=== PATIENT | female | born 1955 | race Hispanic/Latino ===

== ENCOUNTER 2017-12-14 13:24 | Emergency (ER) | payer MEDICARE, OTHER ==
[2017-12-14 13:37] VITALS: BP 177/89
[2017-12-14] MEDS ORDERED: NORCO 5/325 PO ONE (15:41)
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
== END 2017-12-14 17:00 | disposition home or self-care (01) ==
LOC: ED 13:24
DX: S13.8XXA Sprain of joints and ligaments of other parts of neck, initial encounter (principal); Z88.6 Allergy status to analgesic agent; Z88.8 Allergy status to other drugs, medicaments and biological substances; V89.2XXA Person injured in unspecified motor-vehicle accident, traffic, initial encounter; Y93.89 Activity, other specified; Y92.89 Other specified places as the place of occurrence of the external cause; Y99.8 Other external cause status
CPT/HCPCS: 72125; 99284

== ENCOUNTER 2018-08-26 09:26 | Inpatient (IN) | payer MEDICARE ==
[2018-08-26 10:07] LABS: Basophils % (Auto) 0.5 % (0.0-1.8); Eosinophils % (Auto) 0.7 % (0.0-4.3); Hematocrit 35.7 % (30.3-42.9); Hemoglobin 11.8 gm/dl (10.1-14.3); Lymphocytes # (Auto) 1.2 K/mm3 (1.2-5.4); Lymphocytes % (Auto) 22.3 % (13.4-35.0); Mean Corpuscular HGB Conc 33 % (30-34); Mean Corpuscular Volume 100 fl (79-97); Monocytes # (Auto) 0.7 K/mm3 (0.0-0.8); Monocytes % (Auto) 13.3 % (0.0-7.3); Platelet Count 158 K/mm3 (140-440); Red Blood Count 3.59 M/mm3 (3.65-5.03)
[2018-08-26] MEDS ORDERED: NACL 0.9% 1000 ML 1,000 ML IV ONE (10:07)
--- NOTE | 2018-08-26 10:11 | Emergency Department Report ---
ED Altered Mental Status HPI - General Chief Complaint: Altered Mental Status Stated Complaint: AMS Time Seen by Provider: 08/26/18 09:58 Source: patient, EMS Mode of arrival: Stretcher Limitations: Altered Mental Status - History of Present Illness Initial Comments: Patient is 63 years old female with history of multiple sclerosis. Patient resides in a personal home care. Brought to the emergency room via EMS for evaluation of confusion since yesterday. Staff stated that patient was last seen normal was at 9:00 last night. They also stated that patient has been incontinence both urine and fecal. Patient is alert oriented to place but not time or person. Patient denied any fever or chills. She denied any chest pain or abdominal pain. MD Complaint: altered mental status, confusion -: Last night Severity: moderate Associated Symptoms: denies other symptoms - Related Data Previous Rx's Medication Instructions Recorded Last Taken Type Acetaminophen/Codeine [Tylenol 1 tab PO Q6H PRN #10 tab 12/14/17 Unknown Rx /Codeine # 3 tab] Ondansetron [Zofran Odt] 4 mg PO Q8HR PRN #12 tab.rapdis 07/22/18 Unknown Rx Allergies Allergy/AdvReac Type Severity Reaction Status Date / Time aspirin Allergy Unknown Verified 12/14/17 13:32 codeine Allergy Unknown Verified 07/22/18 13:23 glatiramer (copolymer 1) Allergy Unknown Verified 12/14/17 13:32 [From Copaxone] ED Review of Systems ROS: Stated complaint: AMS Other details as noted in HPI Comment: All other systems reviewed and negative Respiratory: denies: cough, orthopnea, shortness of breath, SOB with exertion, SOB at rest Cardiovascular: denies: chest pain, palpitations Gastrointestinal: denies: abdominal pain, nausea, vomiting, diarrhea, con stipation, hematemesis, melena, hematochezia Musculoskeletal: denies: back pain Neurological: weakness (chronic). denies: headache ED Past Medical Hx - Past Medical History Previous Medical History?: Yes Hx Psychiatric Treatment: Yes (bipolar) Additional medical history: Multiple Sclerosis, Chronic Pain - Surgical History Past Surgical History?: Yes Additional Surgical History: tonsilectomy - Social History Smoking Status: Never Smoker Substance Use Type: None - Medications Home Medications: Home Medications Medication Instructions Recorded Confirmed Last Taken Type Acetaminophen/Codeine [Tylenol 1 tab PO Q6H PRN #10 tab 12/14/17 Unknown Rx /Codeine # 3 tab] Ondansetron [Zofran Odt] 4 mg PO Q8HR PRN #12 tab.rapdis 07/22/18 Unknown Rx ED Physical Exam - General Limitations: Altered Mental Status General appearance: alert, in no apparent distress - Head Head exam: Present: atraumatic, normocephalic, normal inspection - Eye Eye exam: Present: normal appearance - ENT ENT exam: Present: normal exam, mucous membranes moist - Neck Neck exam: Present: normal inspection, full ROM. Absent: tenderness, meningismus, lymphadenopathy, thyromegaly - Respiratory Respiratory exam: Present: normal lung sounds bilaterally - Cardiovascular Cardiovascular Exam: Present: regular rate, normal rhythm, normal heart sounds - GI/Abdominal GI/Abdominal exam: Present: soft, normal bowel sounds. Absent: distended, tenderness, guarding, rebound, rigid, diminished bowel sounds, organomegaly, mass, bruit, pulsatile mass, hernia - Extremities Exam Extremities exam: Present: normal inspection, full ROM, normal capillary refill. Absent: pedal edema, calf tenderness - Back Exam Back exam: Present: normal inspection, full ROM. Absent: tenderness, CVA tenderness (R), CVA tenderness (L), muscle spasm, paraspinal tenderness, vertebral tenderness - Neurological Exam Neurological exam: Present: alert, altered - Skin Skin exam: Present: warm, intact, normal color - Assessment Assessment Interval: Baseline - Level of Consciousness 1a. Level of Consciousness: alert/keenly responsive - LOC Questions 1b. LOC Questions: answers both correctly - LOC Command 1c. LOC Commands: performs tasks correctly - Best Gaze 2. Best Gaze: normal - Visual 3. Visual: no visual loss - Facial Palsy 4. Facial Palsy: normal symmetrical movement - Motor Arm 5b. Motor Arm Right: no drift 5a. Motor Arm Left: no drift - Motor Leg 6b. Motor Leg Right: no drift 6a. Motor Leg Left: no drift - Limb Ataxia 7. Limb Ataxia: absent - Sensory 8. Sensory: normal - Best Language 9. Best Language: mild/moderate aphasia - Dysarthria 10. Dysarthria: mild/moderate dysarthria - Extinction and Inattention 11. Extinction/Inattention: no abnormality - Scoring Total Score: 2 Stroke Severity: Minor Stroke ED Course Vital Signs 08/26/18 08/26/18 09:39 09:45 Temperature 98.4 F Pulse Rate 74 Respiratory 18 Rate Blood Pressure 118/67 O2 Sat by Pulse 100 Oximetry - Lab Data Result diagrams: 08/26/18 09:54 08/26/18 09:54 Lab Results 08/26/18 08/26/18 08/26/18 Range/Units 09:39 09:54 09:54 WBC 5.2 (4.5-11.0) K/mm3 RBC 3.59 L (3.65-5.03) M/mm3 Hgb 11.8 (10.1-14.3) gm/dl Hct 35.7 (30.3-42.9) % MCV 100 H (79-97) fl MCH 33 H (28-32) pg MCHC 33 (30-34) % RDW 14.0 (13.2-15.2) % Plt Count 158 (140-440) K/mm3 Lymph % (Auto) 22.3 (13.4-35.0) % [place] % (Auto) 13.3 H (0.0-7.3) % Eos % (Auto) 0.7 (0.0-4.3) % Baso % (Auto) 0.5 (0.0-1.8) % Lymph # 1.2 (1.2-5.4) K/mm3 [place] # 0.7 (0.0-0.8) K/mm3 Eos # 0.0 (0.0-0.4) K/mm3 Baso # 0.0 (0.0-0.1) K/mm3 Seg Neutrophils % 63.2 (40.0-70.0) % Seg Neutrophils # 3.3 (1.8-7.7) K/mm3 Sodium 139 (137-145) mmol/L Potassium 4.0 (3.6-5.0) mmol/L Chloride 101.2 (98-107) mmol/L Carbon Dioxide 28 (22-30) mmol/L Anion Gap 14 mmol/L BUN 6 L (7-17) mg/dL Creatinine 0.6 L (0.7-1.2) mg/dL Estimated GFR > 60 ml/min BUN/Creatinine Ratio 10 % Glucose 81 (65-100) mg/dL POC Glucose 119 H (70-105) Calcium 8.8 (8.4-10.2) mg/dL Total Bilirubin 0.30 (0.1-1.2) mg/dL AST 14 (5-40) units/L ALT 10 (7-56) units/L Alkaline Phosphatase 66 (35-129) units/L Troponin T (0.00-0.029) ng/mL Total Protein 6.1 L (6.3-8.2) g/dL Albumin 3.5 L (3.9-5) g/dL Albumin/Globulin Ratio 1.3 % TSH (0.270-4.200) mlU/mL Urine Color (Yellow) Urine Turbidity (Clear) Urine pH (5.0-7.0) Ur Specific [place] (1.003-1.030) Urine Protein (Negative) mg/dL Urine Glucose (UA) (Negative) mg/dL Urine Ketones (Negative) mg/dL Urine Blood (Negative) Urine Nitrite (Negative) Urine Bilirubin (Negative) Urine Urobilinogen (<2.0) mg/dL Ur Leukocyte Esterase (Negative) Urine WBC (Auto) (0.0-6.0) /HPF Urine RBC (Auto) (0.0-6.0) /HPF Urine Opiates Screen Urine Methadone Screen Ur Barbiturates Screen Ur Phencyclidine Scrn Ur Amphetamines Screen U Benzodiazepines Scrn Urine Cocaine Screen U Marijuana (THC) Screen Drugs of Abuse Note Plasma/Serum Alcohol (0-0.07) % 08/26/18 08/26/18 08/26/18 Range/Units 09:54 09:54 09:56 WBC (4.5-11.0) K/mm3 RBC (3.65-5.03) M/mm3 Hgb (10.1-14.3) gm/dl Hct (30.3-42.9) % MCV (79-97) fl MCH (28-32) pg MCHC (30-34) % RDW (13.2-15.2) % Plt Count (140-440) K/mm3 Lymph % (Auto) (13.4-35.0) % [place] % (Auto) (0.0-7.3) % Eos % (Auto) (0.0-4.3) % Baso % (Auto) (0.0-1.8) % Lymph # (1.2-5.4) K/mm3 [place] # (0.0-0.8) K/mm3 Eos # (0.0-0.4) K/mm3 Baso # (0.0-0.1) K/mm3 Seg Neutrophils % (40.0-70.0) % Seg Neutrophils # (1.8-7.7) K/mm3 Sodium (137-145) mmol/L Potassium (3.6-5.0) mmol/L Chloride (98-107) mmol/L Carbon Dioxide (22-30) mmol/L Anion Gap mmol/L BUN (7-17) mg/dL Creatinine (0.7-1.2) mg/dL Estimated GFR ml/min BUN/Creatinine Ratio % Glucose (65-100) mg/dL POC Glucose (70-105) Calcium (8.4-10.2) mg/dL Total Bilirubin (0.1-1.2) mg/dL AST (5-40) units/L ALT (7-56) units/L Alkaline Phosphatase (35-129) units/L Troponin T < 0.010 (0.00-0.029) ng/mL Total Protein (6.3-8.2) g/dL Albumin (3.9-5) g/dL Albumin/Globulin Ratio % TSH 1.990 (0.270-4.200) mlU/mL Urine Color (Yellow) Urine Turbidity (Clear) Urine pH (5.0-7.0) Ur Specific [place] (1.003-1.030) Urine Protein (Negative) mg/dL Urine Glucose (UA) (Negative) mg/dL Urine Ketones (Negative) mg/dL Urine Blood (Negative) Urine Nitrite (Negative) Urine Bilirubin (Negative) Urine Urobilinogen (<2.0) mg/dL Ur Leukocyte Esterase (Negative) Urine WBC (Auto) (0.0-6.0) /HPF Urine RBC (Auto) (0.0-6.0) /HPF Urine Opiates Screen Urine Methadone Screen Ur Barbiturates Screen Ur Phencyclidine Scrn Ur Amphetamines Screen U Benzodiazepines Scrn Urine Cocaine Screen U Marijuana (THC) Screen Drugs of Abuse Note Plasma/Serum Alcohol < 0.01 (0-0.07) % 08/26/18 08/26/18 Range/Units 10:25 10:25 WBC (4.5-11.0) K/mm3 RBC (3.65-5.03) M/mm3 Hgb (10.1-14.3) gm/dl Hct (30.3-42.9) % MCV (79-97) fl MCH (28-32) pg MCHC (30-34) % RDW (13.2-15.2) % Plt Count (140-440) K/mm3 Lymph % (Auto) (13.4-35.0) % [place] % (Auto) (0.0-7.3) % Eos % (Auto) (0.0-4.3) % Baso % (Auto) (0.0-1.8) % Lymph # (1.2-5.4) K/mm3 [place] # (0.0-0.8) K/mm3 Eos # (0.0-0.4) K/mm3 Baso # (0.0-0.1) K/mm3 Seg Neutrophils % (40.0-70.0) % Seg Neutrophils # (1.8-7.7) K/mm3 Sodium (137-145) mmol/L Potassium (3.6-5.0) mmol/L Chloride (98-107) mmol/L Carbon Dioxide (22-30) mmol/L Anion Gap mmol/L BUN (7-17) mg/dL Creatinine (0.7-1.2) mg/dL Estimated GFR ml/min BUN/Creatinine Ratio % Glucose (65-100) mg/dL POC Glucose (70-105) Calcium (8.4-10.2) mg/dL Total Bilirubin (0.1-1.2) mg/dL AST (5-40) units/L ALT (7-56) units/L Alkaline Phosphatase (35-129) units/L Troponin T (0.00-0.029) ng/mL Total Protein (6.3-8.2) g/dL Albumin (3.9-5) g/dL Albumin/Globulin Ratio % TSH (0.270-4.200) mlU/mL Urine Color Straw (Yellow) Urine Turbidity Clear (Clear) Urine pH 8.0 H (5.0-7.0) Ur Specific [place] 1.002 L (1.003-1.030) Urine Protein <15 mg/dl (Negative) mg/dL Urine Glucose (UA) Neg (Negative) mg/dL Urine Ketones Neg (Negative) mg/dL Urine Blood Neg (Negative) Urine Nitrite Neg (Negative) Urine Bilirubin Neg (Negative) Urine Urobilinogen < 2.0 (<2.0) mg/dL Ur Leukocyte Esterase Neg (Negative) Urine WBC (Auto) < 1.0 (0.0-6.0) /HPF Urine RBC (Auto) 1.0 (0.0-6.0) /HPF Urine Opiates Screen Presumptive negative Urine Methadone Screen Presumptive negative Ur Barbiturates Screen Presumptive negative Ur Phencyclidine Scrn Presumptive negative Ur Amphetamines Screen Presumptive negative U Benzodiazepines Scrn Presumptive negative Urine Cocaine Screen Presumptive negative U Marijuana (THC) Screen Presumptive negative Drugs of Abuse Note Disclamer Plasma/Serum Alcohol (0-0.07) % - EKG Data -: EKG Interpreted by Al EKG shows normal: sinus rhythm Rate: normal Interpretation: no acute changes - Radiology Data Radiology results: report reviewed Referring Physician: BERENICE EWLCH Patient Name: FABIOLA MENDOZA Date of : 1955 Sex: Female Report Date: 2018-08-26 Report Status: Finalized Findings [facility] [address] [place] [address] Cat Scan Report Signed Patient: FABIOLA MENDOZA MR#: [id number] : 1955 Acct:[id number] Age/Sex: 63 / F ADM Date: 08/26/18 Loc: ED Attending Dr: Ordering Physician: BERENICE WELCH Date of Service: 08/26/18 Procedure(s): CT head/brain wo con Accession Number(s): [id number] cc: BERENICE WELCH CT HEAD WITHOUT CONTRAST INDICATION: Altered mental status. COMPARISON: 07/22/2018. FINDINGS: Noncontrast head CT again demonstrates symmetric, mild to moderately enlarged ventricles and sulci, though may be age-appropriate. Moderate periventricular and white matter hypodense small vessel ischemic disease also again seen. No definite acute infarct, hemorrhage, mass effect or midline shift. No abnormal extra axial fluid collections. Preserved basilar cisterns. Stable posterior fossa with approximately 8mm left cerebellar lacunar infarct, axial image 16, series 2. Normal eye globes. Right maxillary sinus mucosal thickening inferiorly partially imaged. Clear remainder imaged paranasal sinuses and mastoid air cells. Atherosclerotic ICA calcifications. Normal calvarium and skull. Numerous radiopaque dental material. CONCLUSION: Right maxillary sinusitis noted with otherwise stable intracranial CT appearance, including atrophy and microvascular changes, as described. Please correlate. Thank you for the opportunity to participate in this patient's care. Transcribed By: RS Dictated By: NAVIN PENN MD Electronically Authenticated By: NAVIN PENN MD Signed Date/Time: 08/26/18 112 DD/ 1116 TD/TT: 08/26/18 1120 - Medical Decision Making Patient is 63 years old female with history of multiple sclerosis. Patient resi rosibel in a personal home care. Brought to the emergency room via EMS for evaluation of confusion since yesterday. Staff stated that patient was last seen normal was at 9:00 last night. They also stated that patient has been incontinence both urine and fecal. Patient is alert oriented to place but not time or person. Patient denied any fever or chills. She denied any chest pain or abdominal pain. Patient evaluated by me multiple times. Patient is alert oriented to place only. CT brain reviewed and is negative for acute finding. Labs review it also and is unremarkable. I believe the patient most likely had MS exacerbation. I discussed the patient with Dr White agreed to admit the patient to medical service. Critical Care Time: Yes Critical care time in (mins) excluding proc time.: 30 Critical care attestation.: If time is entered above; I have spent that time in minutes in the direct care of this critically ill patient, excluding procedure time. ED Disposition Clinical Impression: Confusion, Exacerbation of multiple sclerosis Disposition: OP ADMIT IP TO THIS HOSP Is pt being admited?: Yes Condition: Stable
[2018-08-26 10:53] LABS: Alanine Aminotransferase 10 units/L (7-56); Albumin 3.5 g/dL (3.9-5); BUN/Creatinine Ratio 10; Blood Urea Nitrogen 6 mg/dL (7-17); Calcium 8.8 mg/dL (8.4-10.2); Hemolysis Index 6
--- NOTE | 2018-08-26 11:24 | Cat Scan Report ---
CT HEAD WITHOUT CONTRAST INDICATION: Altered mental status. COMPARISON: 07/22/2018. FINDINGS: Noncontrast head CT again demonstrates symmetric, mild to moderately enlarged ventricles and sulci, though may be age-appropriate. Moderate periventricular and white matter hypodense small vessel ischemic disease also again seen. No definite acute infarct, hemorrhage, mass effect or midline shift. No abnormal extra axial fluid collections. Preserved basilar cisterns. Stable posterior fossa with approximately 8mm left cerebellar lacunar infarct, axial image 16, series 2. Normal eye globes. Right maxillary sinus mucosal thickening inferiorly partially imaged. Clear remainder imaged paranasal sinuses and mastoid air cells. Atherosclerotic ICA calcifications. Normal calvarium and skull. Numerous radiopaque dental material. CONCLUSION: Right maxillary sinusitis noted with otherwise stable intracranial CT appearance, including atrophy and microvascular changes, as described. Please correlate. Thank you for the opportunity to participate in this patient's care.
[2018-08-26 11:50] LABS: Bilirubin,Urine NEG (Negative); Blood,Urine NEG (Negative); Color,Urine Straw (Yellow); Protein,Urine <15 mg/dL mg/dL (Negative); Urobilinogen,Urine < 2.0 mg/dL (<2.0)
[2018-08-26 11:53] LABS: Amphetamine Screen,Urine PRESUMPTIVE NEGATIVE; Benzodiazepines Screen,Urine PRESUMPTIVE NEGATIVE; Cannabinoid Screen,Urine PRESUMPTIVE NEGATIVE; Cocaine Screen,Urine PRESUMPTIVE NEGATIVE; Methadone Screen,Urine PRESUMPTIVE NEGATIVE; Opiate Screen,Urine PRESUMPTIVE NEGATIVE
[2018-08-26 12:05] LABS: WBC,Urine < 1.0 /HPF (0.0-6.0)
--- NOTE | 2018-08-26 12:20 | History and Physical Report ---
History of Present Illness Chief complaint: Im weak, I keep falling History of present illness: 63 YO Female Assisted living Facility Resident with MS, Bipolar DO, Chronic Pain presents to ED for evaluation. Pt states that she has experienced increased confusion over the past 2 days, as well as multiple recurrent falls over the past 2 weeks. Pt acknowledges difficulty speaking, blurred vision, coughing, loss of bowel and bladder continence. EMS notified, and upon arrival the patient was found to be in distress and was subsequently transported to [facility] for further care and evaluation. Pt seen and evaluated in ED and found to have MS Flare. Pt is currently unable to independently conduct activities of daily living. Pt admitted to [facility] and treated with IV steroid therapy. Neurology consulted in ED. Pt denies fever, chills, CP, Palpitations, NVD, skin rash, or recent ill contacts. Pt states that she has recurrent falls, and has to remain on the floor until caregiver comes to pick her up, and that she is pulled up by her belt by the caregiver which causes pain. Pt sates that she does not want to return to her current LONG-TERM. Past History Past Medical History: other (Bipolar, MS, chronic pain) Past Surgical History: tonsillectomy Social history: single. denies: smoking, alcohol abuse, prescription drug abuse Family history: no significant family history (reviewed) Medications and Allergies Allergies Allergy/AdvReac Type Severity Reaction Status Date / Time aspirin Allergy Unknown Verified 12/14/17 13:32 codeine Allergy Unknown Verified 07/22/18 13:23 glatiramer (copolymer 1) Allergy Unknown Verified 12/14/17 13:32 [From Copaxone] Home Medications Medication Instructions Recorded Confirmed Last Taken Type Acetaminophen/Codeine [Tylenol 1 tab PO Q6H PRN #10 tab 12/14/17 Unknown Rx /Codeine # 3 tab] Ondansetron [Zofran Odt] 4 mg PO Q8HR PRN #12 tab.rapdis 07/22/18 Unknown Rx Active Meds: Active Medications Sodium Chloride (Nacl 0.9% 1000 Ml) 1,000 mls @ 250 mls/hr IV ONCE ONE Stop: 08/26/18 14:06 Last Admin: 08/26/18 11:43 Dose: 250 mls/hr Documented by: Review of Systems Constitutional: weakness, no weight loss, no weight gain, no fever, no chills Eyes: bilateral: blurred vision Ears, nose, mouth and throat: no ear pain, no ear discharge, no tinnitis, no decreased hearing, no nose pain Breasts: no change in shape, no swelling, no mass Cardiovascular: no chest pain, no orthopnea, no palpitations, no rapid/irregular heart beat Respiratory: cough, no hemoptysis, no shortness of breath, no dyspnea on exertion Gastrointestinal: no abdominal pain, no nausea, no vomiting, no diarrhea Genitourinary Female: no pelvic pain, no flank pain, no menorrhagia, no dysuria, no urinary frequency, no urgency Rectal: no pain, no incontinence, no bleeding Musculoskeletal: no neck stiffness, no neck pain, no shooting arm pain, no arm numbness/tingling, no low back pain Neurological: weakness, ataxia, confusion, gait dysfunction, motor disturbance Psychiatric: no anxiety, no memory loss, no change in sleep habits, no sleep disturbances, no insomnia, no hypersomnia, no change in appetite, no change in libido Endocrine: no cold intolerance, no heat intolerance, no polyphagia, no polyuria Hematologic/Lymphatic: no easy bruising, no easy bleeding Allergic/Immunologic: no urticaria, no allergic rhinitis, no wheezing Exam - Constitutional Vitals: Temp Pulse Resp BP Pulse Ox 98.4 F 74 18 118/67 100 08/26/18 09:45 08/26/18 09:39 08/26/18 09:39 08/26/18 09:39 08/26/18 09:39 General appearance: Present: mild distress, disheveled - EENT Eyes: Present: PERRL ENT: hearing intact, clear oral mucosa - Neck Neck: Present: supple, normal ROM - Respiratory Respiratory: bilateral: CTA - Cardiovascular Heart Sounds: Present: S1 & S2. Absent: rub, click - Extremities Extremities: pulses symmetrical, No edema Peripheral Pulses: within normal limits - Abdominal General gastrointestinal: Present: soft, non-tender, non-distended, normal bowel sounds Female genitourinary: Present: normal - Integumentary Integumentary: Present: clear, dry, decreased turgor - Musculoskeletal Musculoskeletal: generalized weakness - Psychiatric Psychiatric: appropriate mood/affect, intact judgment & insight, memory intact - Neurologic Neurologic: CNII-XII intact, no gait normal, other (Dysarthria, word finding difficulty, ) Results - Labs CBC & Chem 7: 08/26/18 09:54 08/26/18 09:54 Labs: Abnormal lab results 08/26/18 08/26/18 08/26/18 Range/Units 09:39 09:54 09:54 RBC 3.59 L (3.65-5.03) M/mm3 MCV 100 H (79-97) fl MCH 33 H (28-32) pg [place] % (Auto) 13.3 H (0.0-7.3) % BUN 6 L (7-17) mg/dL Creatinine 0.6 L (0.7-1.2) mg/dL POC Glucose 119 H (70-105) Total Protein 6.1 L (6.3-8.2) g/dL Albumin 3.5 L (3.9-5) g/dL Urine pH (5.0-7.0) Ur Specific [place] (1.003-1.030) 08/26/18 Range/Units 10:25 RBC (3.65-5.03) M/mm3 MCV (79-97) fl MCH (28-32) pg [place] % (Auto) (0.0-7.3) % BUN (7-17) mg/dL Creatinine (0.7-1.2) mg/dL POC Glucose (70-105) Total Protein (6.3-8.2) g/dL Albumin (3.9-5) g/dL Urine pH 8.0 H (5.0-7.0) Ur Specific [place] 1.002 L (1.003-1.030) Assessment and Plan - Patient Problems (1) Exacerbation of multiple sclerosis Current Visit: Yes Status: Acute Plan to address problem: IV steroid therapy, CT hear, MRI Brain, Lumbar spine, supportive care. Neurology consulted. (2) Bipolar 1 disorder Current Visit: Yes Status: Acute Plan to address problem: continue current therapy, supportive care. (3) Debility Current Visit: Yes Status: Acute Plan to address problem: PT consulted (4) DVT prophylaxis Current Visit: Yes Status: Acute Plan to address problem: SCD to BLE while in bed
[2018-08-26] MEDS ORDERED: TYLENOL PO PRN (12:21)
[2018-08-26] MEDS ORDERED: SODIUM CHLORIDE FLUSH SYRINGE 10 ML IV PRN (12:21)
[2018-08-26] MEDS ORDERED: PROVENTIL IH PRN (12:21)
[2018-08-26] MEDS ORDERED: ZOFRAN IV PRN (12:21)
[2018-08-26] MEDS ORDERED: SOLU-Medrol ONE (12:52)
[2018-08-26] MEDS ORDERED: SOLU-Medrol IV ONE (13:24)
--- NOTE | 2018-08-26 19:15 | Consultation ---
History of Present Illness Consult date: 08/26/18 Chief complaint: FAlls History of present illness: This is a 63 YO F with history of MS x 9 years who presented to the ED with an increase in falls. PT denied any recent illness. Not a great historian but says she has been off MS meds for "months". Thinks she was last on Copaxone. Has seen many neurologists but says Dr. Ramakrishna price is her neurologist but has not seen him recently. Denied recent dysuria but says she has trouble control ling her bladder. Past History Past Medical History: other (Bipolar, MS, chronic pain) Past Surgical History: tonsillectomy Social history: single. denies: smoking, alcohol abuse, prescription drug abuse Family history: no significant family history (reviewed) Medications and Allergies Allergies Allergy/AdvReac Type Severity Reaction Status Date / Time aspirin Allergy Unknown Verified 12/14/17 13:32 codeine Allergy Unknown Verified 07/22/18 13:23 glatiramer (copolymer 1) Allergy Unknown Verified 12/14/17 13:32 [From Copaxone] Home Medications Medication Instructions Recorded Confirmed Last Taken Type Acetaminophen/Codeine [Tylenol 1 tab PO Q6H PRN #10 tab 12/14/17 Unknown Rx /Codeine # 3 tab] Ondansetron [Zofran Odt] 4 mg PO Q8HR PRN #12 tab.rapdis 07/22/18 Unknown Rx Active Meds: Active Medications Acetaminophen (Tylenol) 650 mg PO Q4H PRN PRN Reason: Pain MILD(1-3)/Fever >100.5/EARLY Albuterol (Proventil) 2.5 mg IH Q4HRT PRN PRN Reason: Shortness Of Breath Methylprednisolone Sodium Succinate (Solu-Medrol) 40 mg IV Q12HR PEARL Ondansetron HCl (Zofran) 4 mg IV Q8H PRN PRN Reason: Nausea And Vomiting Sodium Chloride (Sodium Chloride Flush Syringe 10 Ml) 10 ml IV BID [place]ARL Sodium Chloride (Sodium Chloride Flush Syringe 10 Ml) 10 ml IV PRN PRN PRN Reason: LINE FLUSH Review of Systems Neurological: weakness, tremors, spasticity Physical Examination - Vital Signs Vital Signs: Vital Signs Pulse Resp BP Pulse Ox 74 18 118/67 100 08/26/18 09:39 08/26/18 09:39 08/26/18 09:39 08/26/18 09:39 - EENT EENT: Present: hearing intact, vision intact - Respiratory Respiratory: Present: normal breath sounds - Cardiovascular Cardiovascular: Present: regular rate - Neurologic Cranial nerve examination: EOMI, anisocoria, V1/V2/V3 grossly intact, face symmetric, tongue midline Speech examination: intact Motor examination - right side: 3/5: biceps, triceps, wrist flexion, wrist extension, supervising editor news reel, hip flexors, knee extensors, dorsiflexion, toe extension (EHL), plantarflexion Motor examination - left side: 3/5: biceps, triceps, wrist flexion, wrist extension, supervising editor news reel, hip flexors, knee extensors, dorsiflexion, toe extension (EHL), plantarflexion Detailed sensory examination: light touch Reflexes: 1+: ankle, 2+: bicep, knee, tricep - Additional Exam Additional Exam: increased tone throughout - Assessment Assessment Interval: Baseline - Level of Consciousness 1a. Level of Consciousness: alert/keenly responsive - LOC Questions 1b. LOC Questions: answers both correctly - LOC Command 1c. LOC Commands: performs tasks correctly - Best Gaze 2. Best Gaze: normal - Visual 3. Visual: no visual loss - Facial Palsy 4. Facial Palsy: normal symmetrical movement - Motor Arm 5b. Motor Arm Right: no drift - Motor Leg 6a. Motor Leg Left: no drift - Limb Ataxia 7. Limb Ataxia: absent - Sensory 8. Sensory: normal - Best Language 9. Best Language: mild/moderate aphasia - Dysarthria 10. Dysarthria: mild/moderate dysarthria - Extinction and Inattention 11. Extinction/Inattention: no abnormality Results - Laboratory Findings CBC and BMP: 08/26/18 09:54 08/26/18 09:54 Abnormal Lab Findings: Abnormal Labs 08/26/18 08/26/18 08/26/18 09:39 09:54 09:54 RBC 3.59 L MCV 100 H MCH 33 H [place] % (Auto) 13.3 H BUN 6 L Creatinine 0.6 L POC Glucose 119 H Total Protein 6.1 L Albumin 3.5 L Urine pH Ur Specific [place] 08/26/18 10:25 RBC MCV MCH [place] % (Auto) BUN Creatinine POC Glucose Total Protein Albumin Urine pH 8.0 H Ur Specific [place] 1.002 L Assessment and Plan This is a 63 YO F with presumed MS flare. Recommend: Fine to do 3 days 1 gm solumedrol PT/OT No obvious signs of infection or reason for MS flare noted. Pt should, however, closely follow up with her neurologist as an outpatient to resume MS meds. Continue care for all medical issues as you are doing Call with questions.
--- NOTE | 2018-08-26 20:43 | Magnetic Resonance Report ---
FINAL REPORT PROCEDURE: MR BRAIN WO/W CON TECHNIQUE: Magnetic resonance imaging of the brain was performed before and after the IV injection o f paramagnetic contrast. HISTORY: weaknessinpatient COMPARISON: No prior studies are available for comparison. FINDINGS: Skull base and calvarium: Normal. Paranasal sinuses: The visualized paranasal sinuses are clear. Cerebellum: An irregular focal signal abnormality involving left cerebellar hemisphere is noted which is hypo intense on T1 and hyperintense on T2 weighted images most likely representing an old infarct .. Brainstem: No evidence of hemorrhage, ischemia or mass . Cerebrum: There are multiple irregular signal abnormalities involving bilateral cerebral white matter some of which are oriented perpendicular to the corpus callosum which are predominantly hypo intense on T1 and hyperintense on T2 weighted images without any mass effect. Largest lesion measures 1.1 ce ntimeters located in the right anterior parietal white matter. None of these lesions demonstrate any enhancement on the postcontrast images. Diffusion-weighted images failed to demonstrate any hyperinte nse signal abnormalities.. Sulci and ventricles: Sulci and ventricles are prominent consistent with cerebral atrophy. Pituitary gland and sella: Normal. Globes and orbits: Normal. Vasculature: Normal arterial and venous flow voids. Abnormal enhancement: None. Other: None. IMPRESSION: Irregular focal signal abnormalities of bilateral cerebral hemispheres as described above are of non specific nature. A demyelinating process such as multiple myeloma cannot be excluded. Differential di agnosis includes etiologies such as chronic cerebral microangiopathy and multiple infarcts.
[2018-08-26] MEDS: SOLU-Medrol 1,000 MG in NACL 0.9% 250ML 250 ML IV SCH (21:19)
--- NOTE | 2018-08-26 21:36 | Magnetic Resonance Report ---
FINAL REPORT PROCEDURE: MR LUMBAR SPINE WO/W CON TECHNIQUE: Magnetic resonance imaging of the lumbar spine was performed using standard pulse sequenc es before and after the IV injection of paramagnetic contrast. CPT 14901 HISTORY: weaknessinpatient COMPARISON: No prior studies are available for comparison. FINDINGS: The vertebral body heights and alignment are maintained. The conus terminates at the level of L1 L1-2: No significant abnormality . L2-3: There is disc desiccation, disc space narrowing and endplate fatty changes. Minimal broad-based posterior disc bulge, with no spinal stenosis. No significant neural foraminal narrowing is seen jay aterally. L3-4: Bilateral facet hypertrophic degenerative change. Mild broad-based posterior disc herniation, w ithout significant spinal stenosis. There is mild bilateral neural foraminal narrowing. L4-5: Bilateral facet hypertrophic arthritis and osteophyte formation. Broad-based posterior disc her niation. Thecal sac measures 9 millimeters AP x 9 millimeters transverse. There is moderate bilateral neural foraminal narrowing L5-S1: Bilateral facet hypertrophic arthritis. No disc herniation. Mild bilateral neural foraminal na rrowing. Other: No abnormal enhancement is seen. IMPRESSION: Multilevel degenerative changes, particularly from L2-3 through L5-S1. No significant spinal stenosis is seen, however there is mild to moderate neural foraminal narrowing from L3-4 through L5-S1 as rosibel cribed above
[2018-08-26] MEDS: SOLU-Medrol IV SCH (22:17)
[2018-08-26] MEDS: SODIUM CHLORIDE FLUSH SYRINGE 10 ML IV SCH (22:17)
[2018-08-27 06:34] LABS: Basophils % (Auto) 0.1 % (0.0-1.8); Hematocrit 40.3 % (30.3-42.9); Hemoglobin 13.3 gm/dl (10.1-14.3); Lymphocytes # (Auto) 0.5 K/mm3 (1.2-5.4); Lymphocytes % (Auto) 13.9 % (13.4-35.0); Mean Corpuscular HGB Conc 33 % (30-34); Mean Corpuscular Volume 99 fl (79-97); Platelet Count 187 K/mm3 (140-440); Red Blood Count 4.06 M/mm3 (3.65-5.03); Red Cell Distribution Width 13.5 % (13.2-15.2)
[2018-08-27 06:44] LABS: BUN/Creatinine Ratio 20; Blood Urea Nitrogen 10 mg/dL (7-17); Hemolysis Index 7
[2018-08-27] MEDS ORDERED: PERCOCET 5/325 PO PRN (12:39)
--- NOTE | 2018-08-27 12:42 | Progress Note ---
Assessment and Plan Assessment and plan: 63-year-old woman with history of multiple sclerosis. Presented with episode of confusion, incontinence of urine and feces. The time of arrival shows only oriented to place but not time or person Past medical history multiple sclerosis, bipolar disorder chronic pain syndrome Vital signs reviewed patient has been hypertensive blood pressures as high as 151/75 Labs reviewed, no positive or pertinent labs noted, grossly normal, UDS negat yassine, UA neg Imaging reviewed Brain MRI shows irregular focal signal abnormalities of bilateral cerebral hemispheres consistent with multiple sclerosis CT head shows right maxillary sinusitis otherwise stable Lumbar spine MRI shows multilevel degenerative changes particularly L2 to L3 and L5 to [id number] spinal stenosis is seen, and there is mild to moderate neural foraminal narrowing from L3 to L4 through L5 to S1 Diagnoses Acute exacerbation of multiple sclerosis Acute metabolic encephalopathy Bipolar disorder 1, with paranoia Disability Chronic pain syndrome htn Plan Neurology input appreciated, on 3 days of 1 g Solu-Medrol Optimize medications for chronic conditions Pain control She is paranoid, states that the staffing manager of a personal residential has been rude and mean to her, and that the staffing manager has been telling lies about her. -Discussed with case management about obtaining a different personal residential for her, and the meantime will obtain [facility] History Interval history: Review of systems Constitutional: No fevers, no malaise, no joint pains CVS: No chest pain, no orthopnea, no dyspnea on exertion, no pedal edema GI: No abdominal pain, no diarrhea, no vomiting, no constipation Respiratory: No shortness of breath, no wheezing, no coughing Hospitalist Physical - Physical exam Narrative exam: General.: Appears well, no distress, nontoxic HEENT: Moist mucous membranes, extraocular muscles intact, no lymphadenopathy Neck: supple Cardiac: S1-S2 heard Lungs: clear to auscultation bilaterally Abdomen: soft , nontender, nondistended, bowel sounds positive Extremities: no edema clubbing or cyanosis Skin: no rash or lesions Neurologic: generalized weakness, tremors in UE Psych: calm, and cooperative, but paranoid - Constitutional Vitals: Temp Pulse Resp BP Pulse Ox 98.5 F 71 13 151/75 93 08/27/18 04:00 08/27/18 11:30 08/27/18 11:30 08/27/18 11:30 08/27/18 11:30 General appearance: Present: mild distress, disheveled Results - Labs CBC & Chem 7: 08/27/18 05:38 08/27/18 05:38 Labs: Laboratory Last Values WBC 3.7 K/mm3 (4.5-11.0) L 08/27/18 05:38 RBC 4.06 M/mm3 (3.65-5.03) 08/27/18 05:38 Hgb 13.3 gm/dl (10.1-14.3) 08/27/18 05:38 Hct 40.3 % (30.3-42.9) 08/27/18 05:38 MCV 99 fl (79-97) H 08/27/18 05:38 MCH 33 pg (28-32) H 08/27/18 05:38 MCHC 33 % (30-34) 08/27/18 05:38 RDW 13.5 % (13.2-15.2) 08/27/18 05:38 Plt Count 187 K/mm3 (140-440) 08/27/18 05:38 Lymph % (Auto) 13.9 % (13.4-35.0) 08/27/18 05:38 [place] % (Auto) 1.0 % (0.0-7.3) 08/27/18 05:38 Eos % (Auto) 0.0 % (0.0-4.3) 08/27/18 05:38 Baso % (Auto) 0.1 % (0.0-1.8) 08/27/18 05:38 Lymph # 0.5 K/mm3 (1.2-5.4) L 08/27/18 05:38 [place] # 0.0 K/mm3 (0.0-0.8) 08/27/18 05:38 Eos # 0.0 K/mm3 (0.0-0.4) 08/27/18 05:38 Baso # 0.0 K/mm3 (0.0-0.1) 08/27/18 05:38 Seg Neutrophils % 85.0 % (40.0-70.0) H 08/27/18 05:38 Seg Neutrophils # 3.2 K/mm3 (1.8-7.7) 08/27/18 05:38 Sodium 141 mmol/L (137-145) 08/27/18 05:38 Potassium 4.4 mmol/L (3.6-5.0) 08/27/18 05:38 Chloride 103.0 mmol/L (98-107) 08/27/18 05:38 Carbon Dioxide 25 mmol/L (22-30) 08/27/18 05:38 Anion Gap 17 mmol/L 08/27/18 05:38 BUN 10 mg/dL (7-17) 08/27/18 05:38 Creatinine 0.5 mg/dL (0.7-1.2) L 08/27/18 05:38 Estimated GFR > 60 ml/min 08/27/18 05:38 BUN/Creatinine Ratio 20 % 08/27/18 05:38 Glucose 141 mg/dL (65-100) H 08/27/18 05:38 POC Glucose 134 (70-105) H 08/27/18 09:05 Calcium 9.0 mg/dL (8.4-10.2) 08/27/18 05:38 Total Bilirubin 0.30 mg/dL (0.1-1.2) 08/26/18 09:54 AST 14 units/L (5-40) 08/26/18 09:54 ALT 10 units/L (7-56) 08/26/18 09:54 Alkaline Phosphatase 66 units/L (35-129) 08/26/18 09:54 Troponin T < 0.010 ng/mL (0.00-0.029) 08/26/18 09:56 Total Protein 6.1 g/dL (6.3-8.2) L 08/26/18 09:54 Albumin 3.5 g/dL (3.9-5) L 08/26/18 09:54 Albumin/Globulin Ratio 1.3 % 08/26/18 09:54 TSH 1.990 mlU/mL (0.270-4.200) 08/26/18 09:54 Urine Color Straw (Yellow) 08/26/18 10:25 Urine Turbidity Clear (Clear) 08/26/18 10:25 Urine pH 8.0 (5.0-7.0) H 08/26/18 10:25 Ur Specific [place] 1.002 (1.003-1.030) L 08/26/18 10:25 Urine Protein <15 mg/dl mg/dL (Negative) 08/26/18 10:25 Urine Glucose (UA) Neg mg/dL (Negative) 08/26/18 10:25 Urine Ketones Neg mg/dL (Negative) 08/26/18 10:25 Urine Blood Neg (Negative) 08/26/18 10:25 Urine Nitrite Neg (Negative) 08/26/18 10:25 Urine Bilirubin Neg (Negative) 08/26/18 10:25 Urine Urobilinogen < 2.0 mg/dL (<2.0) 08/26/18 10:25 Ur Leukocyte Esterase Neg (Negative) 08/26/18 10:25 Urine WBC (Auto) < 1.0 /HPF (0.0-6.0) 08/26/18 10:25 Urine RBC (Auto) 1.0 /HPF (0.0-6.0) 08/26/18 10:25 Urine Opiates Screen Presumptive negative 08/26/18 10:25 Urine Methadone Screen Presumptive negative 08/26/18 10:25 Ur Barbiturates Screen Presumptive negative 08/26/18 10:25 Ur Phencyclidine Scrn Presumptive negative 08/26/18 10:25 Ur Amphetamines Screen Presumptive negative 08/26/18 10:25 U Benzodiazepines Scrn Presumptive negative 08/26/18 10:25 Urine Cocaine Screen Presumptive negative 08/26/18 10:25 U Marijuana (THC) Screen Presumptive negative 08/26/18 10:25 Drugs of Abuse Note Disclamer 08/26/18 10:25 Plasma/Serum Alcohol < 0.01 % (0-0.07) 08/26/18 09:54
[2018-08-27] MEDS: NORVASC PO SCH (13:47)
[2018-08-27] MEDS: SODIUM CHLORIDE FLUSH SYRINGE 10 ML IV SCH ×2 (13:47→21:06)
[2018-08-27] MEDS: SOLU-Medrol 1,000 MG in NACL 0.9% 250ML 250 ML IV SCH (21:05)
[2018-08-27] MEDS: LOVENOX SUB-Q SCH (21:05)
[2018-08-28] MEDS: SOLU-Medrol IV SCH (07:32)
[2018-08-28] MEDS: NORVASC PO SCH (09:50)
[2018-08-28] MEDS: SODIUM CHLORIDE FLUSH SYRINGE 10 ML IV SCH ×2 (09:51→21:46)
--- NOTE | 2018-08-28 12:32 | Progress Note ---
Assessment and Plan Assessment and plan: 63-year-old woman with history of multiple sclerosis. Presented with episode of confusion, incontinence of urine and feces. The time of arrival shows only oriented to place but not time or person Past medical history multiple sclerosis, bipolar disorder chronic pain syndrome Vital signs reviewed patient has been hypertensive blood pressures as high as 151/75 Labs reviewed, no positive or pertinent labs noted, grossly normal, UDS negat yassine, UA neg Imaging reviewed Brain MRI shows irregular focal signal abnormalities of bilateral cerebral hemispheres consistent with multiple sclerosis CT head shows right maxillary sinusitis otherwise stable Lumbar spine MRI shows multilevel degenerative changes particularly L2 to L3 and L5 to [id number] spinal stenosis is seen, and there is mild to moderate neural foraminal narrowing from L3 to L4 through L5 to S1 Diagnoses Acute exacerbation of multiple sclerosis Acute metabolic encephalopathy Bipolar disorder 1, with paranoia Disability Chronic pain syndrome htn Plan Neurology input appreciated, on 3 days of 1 g Solu-Medrol Optimize medications for chronic conditions Pain control She is paranoid, states that the junior project manager of a personal halfway has been rude and mean to her, and that the junior project manager has been telling lies about her. -Discussed with case management about obtaining a different personal halfway for her, and the meantime will [facility] History Interval history: c/o gen weakness is claiming that she feels like people are out to get her Review of systems Constitutional: No fevers, no malaise, no joint pains CVS: No chest pain, no orthopnea, no dyspnea on exertion, no pedal edema GI: No abdominal pain, no diarrhea, no vomiting, no constipation Respiratory: No shortness of breath, no wheezing, no coughing Hospitalist Physical - Physical exam Narrative exam: General.: Appears well, no distress, nontoxic HEENT: Moist mucous membranes, extraocular muscles intact, no lymphadenopathy Neck: supple Cardiac: S1-S2 heard Lungs: clear to auscultation bilaterally Abdomen: soft , nontender, nondistended, bowel sounds positive Extremities: no edema clubbing or cyanosis Skin: no rash or lesions Neurologic: generalized weakness, tremors in UE Psych: calm, and cooperative, but paranoid - Constitutional Vitals: Temp Pulse Resp BP Pulse Ox 97.6 F 71 18 117/56 94 08/28/18 11:39 08/28/18 10:20 08/28/18 10:20 08/28/18 10:20 08/28/18 10:20 General appearance: Present: mild distress, disheveled Results - Labs CBC & Chem 7: 08/27/18 05:38 08/27/18 05:38 Labs: Laboratory Last Values WBC 3.7 K/mm3 (4.5-11.0) L 08/27/18 05:38 RBC 4.06 M/mm3 (3.65-5.03) 08/27/18 05:38 Hgb 13.3 gm/dl (10.1-14.3) 08/27/18 05:38 Hct 40.3 % (30.3-42.9) 08/27/18 05:38 MCV 99 fl (79-97) H 08/27/18 05:38 MCH 33 pg (28-32) H 08/27/18 05:38 MCHC 33 % (30-34) 08/27/18 05:38 RDW 13.5 % (13.2-15.2) 08/27/18 05:38 Plt Count 187 K/mm3 (140-440) 08/27/18 05:38 Lymph % (Auto) 13.9 % (13.4-35.0) 08/27/18 05:38 [place] % (Auto) 1.0 % (0.0-7.3) 08/27/18 05:38 Eos % (Auto) 0.0 % (0.0-4.3) 08/27/18 05:38 Baso % (Auto) 0.1 % (0.0-1.8) 08/27/18 05:38 Lymph # 0.5 K/mm3 (1.2-5.4) L 08/27/18 05:38 [place] # 0.0 K/mm3 (0.0-0.8) 08/27/18 05:38 Eos # 0.0 K/mm3 (0.0-0.4) 08/27/18 05:38 Baso # 0.0 K/mm3 (0.0-0.1) 08/27/18 05:38 Seg Neutrophils % 85.0 % (40.0-70.0) H 08/27/18 05:38 Seg Neutrophils # 3.2 K/mm3 (1.8-7.7) 08/27/18 05:38 Sodium 141 mmol/L (137-145) 08/27/18 05:38 Potassium 4.4 mmol/L (3.6-5.0) 08/27/18 05:38 Chloride 103.0 mmol/L (98-107) 08/27/18 05:38 Carbon Dioxide 25 mmol/L (22-30) 08/27/18 05:38 Anion Gap 17 mmol/L 08/27/18 05:38 BUN 10 mg/dL (7-17) 08/27/18 05:38 Creatinine 0.5 mg/dL (0.7-1.2) L 08/27/18 05:38 Estimated GFR > 60 ml/min 08/27/18 05:38 BUN/Creatinine Ratio 20 % 08/27/18 05:38 Glucose 141 mg/dL (65-100) H 08/27/18 05:38 POC Glucose 134 (70-105) H 08/27/18 09:05 Calcium 9.0 mg/dL (8.4-10.2) 08/27/18 05:38 Total Bilirubin 0.30 mg/dL (0.1-1.2) 08/26/18 09:54 AST 14 units/L (5-40) 08/26/18 09:54 ALT 10 units/L (7-56) 08/26/18 09:54 Alkaline Phosphatase 66 units/L (35-129) 08/26/18 09:54 Troponin T < 0.010 ng/mL (0.00-0.029) 08/26/18 09:56 Total Protein 6.1 g/dL (6.3-8.2) L 08/26/18 09:54 Albumin 3.5 g/dL (3.9-5) L 08/26/18 09:54 Albumin/Globulin Ratio 1.3 % 08/26/18 09:54 TSH 1.990 mlU/mL (0.270-4.200) 08/26/18 09:54 Urine Color Straw (Yellow) 08/26/18 10:25 Urine Turbidity Clear (Clear) 08/26/18 10:25 Urine pH 8.0 (5.0-7.0) H 08/26/18 10:25 Ur Specific [place] 1.002 (1.003-1.030) L 08/26/18 10:25 Urine Protein <15 mg/dl mg/dL (Negative) 08/26/18 10:25 Urine Glucose (UA) Neg mg/dL (Negative) 08/26/18 10:25 Urine Ketones Neg mg/dL (Negative) 08/26/18 10:25 Urine Blood Neg (Negative) 08/26/18 10:25 Urine Nitrite Neg (Negative) 08/26/18 10:25 Urine Bilirubin Neg (Negative) 08/26/18 10:25 Urine Urobilinogen < 2.0 mg/dL (<2.0) 08/26/18 10:25 Ur Leukocyte Esterase Neg (Negative) 08/26/18 10:25 Urine WBC (Auto) < 1.0 /HPF (0.0-6.0) 08/26/18 10:25 Urine RBC (Auto) 1.0 /HPF (0.0-6.0) 08/26/18 10:25 Urine Opiates Screen Presumptive negative 08/26/18 10:25 Urine Methadone Screen Presumptive negative 08/26/18 10:25 Ur Barbiturates Screen Presumptive negative 08/26/18 10:25 Ur Phencyclidine Scrn Presumptive negative 08/26/18 10:25 Ur Amphetamines Screen Presumptive negative 08/26/18 10:25 U Benzodiazepines Scrn Presumptive negative 08/26/18 10:25 Urine Cocaine Screen Presumptive negative 08/26/18 10:25 U Marijuana (THC) Screen Presumptive negative 08/26/18 10:25 Drugs of Abuse Note Disclamer 08/26/18 10:25 Plasma/Serum Alcohol < 0.01 % (0-0.07) 08/26/18 09:54
[2018-08-28] MEDS: SOLU-Medrol 1,000 MG in NACL 0.9% 250ML 250 ML IV SCH (20:30)
[2018-08-28] MEDS: LOVENOX SUB-Q SCH (21:46)
[2018-08-29] MEDS: NORVASC PO SCH (09:03)
[2018-08-29] MEDS: SODIUM CHLORIDE FLUSH SYRINGE 10 ML IV SCH (09:04)
--- NOTE | 2018-08-29 10:44 | Discharge Summary ---
Providers - Providers Date of Admission: 08/26/18 12:21 Attending physician: HOLLY ASTUDILLO MD 08/26/18 14:01 Consult to Physician [CONS] Routine Comment: Consulting Provider: TIARA DIAMOND Physician Instructions: Reason For Exam: MS Flare 08/26/18 14:03 Consult to Case Management [CONS] Routine Services Needed at Discharge: Wet Trimmer Other Additional Physician Instructions: Discharge Planning to new [facility] versus SNF with rehab Physical Therapy Evaluation and Treat [CONS] Routine Comment: Reason For Exam: weakness Primary care physician: IVONNE ZUNIGA Hospitalization Condition: Stable Hospital course: 63-year-old woman with history of multiple sclerosis. Presented with episode of confusion, incontinence of urine and feces. The time of arrival shows only oriented to place but not time or person Past medical history multiple sclerosis, bipolar disorder chronic pain syndrome Vital signs reviewed patient has been hypertensive blood pressures as high as 151/75 Labs reviewed, no positive or pertinent labs noted, grossly normal, UDS negative, UA neg Imaging reviewed Brain MRI shows irregular focal signal abnormalities of bilateral cerebral hemispheres consistent with multiple sclerosis CT head shows right maxillary sinusitis otherwise stable Lumbar spine MRI shows multilevel degenerative changes particularly L2 to L3 and L5 to [id number] spinal stenosis is seen, and there is mild to moderate n eural foraminal narrowing from L3 to L4 through L5 to S1 Diagnoses Acute exacerbation of multiple sclerosis Acute metabolic encephalopathy Bipolar disorder 1, with paranoia Disability Chronic pain syndrome pre hypertension Plan Neurology input appreciated, received 3 days of 1 g Solu-Medrol Optimized medications for chronic conditions -She was initially paranoid, feeling as though people were plotting against her. But became calm towards the end of her hospital stay. lovenox for dvt ppx Disposition: [id number] ANOTHER TYPE HLTHCARE Time spent for discharge: 33 mins Core Measure Documentation - Palliative Care Palliative Care/ Comfort Measures: Not Applicable - Core Measures Any of the following diagnoses?: none Exam - Physical Exam Narrative exam: General.: Appears well, no distress, nontoxic HEENT: Moist mucous membranes, extraocular muscles intact, no lymphadenopathy Neck: supple Cardiac: S1-S2 heard Lungs: clear to auscultation bilaterally Abdomen: soft , nontender, nondistended, bowel sounds positive Extremities: no edema clubbing or cyanosis Skin: no rash or lesions Neurologic: generalized weakness, tremors in UE Psych: calm, and cooperative, but paranoid - Constitutional Vitals: Temp Pulse Resp BP Pulse Ox 98 F 75 16 92/51 93 08/29/18 08:00 08/29/18 10:01 08/29/18 10:01 08/29/18 10:01 08/29/18 10:01 Plan Follow up with: VIONNE ZUNIGA MD [Primary Care Provider] - 3-5 Days Prescriptions: Acetaminophen/Codeine [Tylenol /Codeine # 3 tab] 1 tab PO Q6H PRN #10 tab PRN Reason: Pain Ondansetron [Zofran ODT TAB] 4 mg PO Q8HR PRN #12 tab.rapdis PRN Reason: Nausea
[2018-08-29 16:20] VITALS: BP 104/75
== END 2018-08-29 21:30 | disposition home health service (06) | DRG 58 ==
LOC: ED 09:26 → IMCU 12:21
PROVIDERS: ADMIT Internal Medicine; ATTEND Internal Medicine
DX: G35 Multiple sclerosis (principal); G93.41 Metabolic encephalopathy; G89.4 Chronic pain syndrome; I10 Essential (primary) hypertension; F31.9 Bipolar disorder, unspecified; Z88.5 Allergy status to narcotic agent; Z88.8 Allergy status to other drugs, medicaments and biological substances
CPT/HCPCS: 36415; 70450; 70553; 72158; 80048; 80053; 80307; 80320; 81001; 82962; 84443; 84484; 85025; 93005; 93010; 96361; 96374; G0378; A9577; G0480; J1650; J2920; J2930; J7030; J7050